=== PATIENT | female | born 1995 | race Caucasian/White ===

== ENCOUNTER 2016-05-18 06:33 | Inpatient (IN) | payer SELFPAY ==
[2016-05-18] MEDS ORDERED: ceFOXitin 2 GM IVPREMIX* 2 GM/50 ML BAG IVPB ONE (07:01)
[2016-05-18 07:22] LABS: Hematocrit 38 % (35-47); Hemoglobin 13.2 g/dl (12.0-16.0); Mean Corpuscular HGB Conc 35 g/dl (31-36); Mean Corpuscular Hemoglobin 33 pg (27-31); Mean Corpuscular Volume 96 fL (80-97); Mean Platelet Volume 11 um3 (7.4-10.4); Red Blood Count 3.95 10^6/ul (4.0-5.4); Red Cell Distribution Width 13 % (10.5-15); White Blood Count 24.1 10^3/ul (3.5-10.8)
[2016-05-18] MEDS ORDERED: ceFOXitin 2 GM IVPREMIX* 2 GM/50 ML BAG ONE (07:24)
[2016-05-18] MEDS ORDERED: Midazolam* 1 MG/ML 5 ML VIAL (5 MG) ONE (07:35)
[2016-05-18] MEDS ORDERED: KETAMINE HCL* 50 MG/ML 10 ML VIAL ONE (07:35)
[2016-05-18] MEDS ORDERED: Morphine PF AMP (0.5MG/ML)* 5 MG/10 ML AMP ONE (07:35)
[2016-05-18] MEDS ORDERED: fentaNYL* 50 MCG/ML 2 ML VIAL (100 MCG VIAL) ONE (07:35)
[2016-05-18] MEDS ORDERED: Morphine INJ* 10 MG/ML 1 ML SYRINGE ONE (07:35)
[2016-05-18] MEDS ORDERED: PROCHLORPERAZINE INJ 5 MG/ML 2 ML VIAL IV PRN (08:10)
[2016-05-18] MEDS ORDERED: oxyCODONE/Acetamin 5/325 MG* TAB PO PRN ×2 (08:10→10:02)
[2016-05-18] MEDS ORDERED: Ondansetron INJ* 2 MG/ML VIAL IV PRN (08:10)
[2016-05-18] MEDS ORDERED: Nalbuphine* 20 MG/ML 1 ML VIAL IV PRN (08:10)
[2016-05-18] MEDS ORDERED: Naloxone* 0.4 MG/ML 1 ML VIAL IV PRN (08:10)
[2016-05-18] MEDS ORDERED: Scopolamine 1.5 mg* PATCH ONE (08:57)
[2016-05-18] MEDS ORDERED: EPHEDrine (Pressors)* 50 MG/ML VIAL ONE (08:58)
[2016-05-18] MEDS ORDERED: Ondansetron INJ* 2 MG/ML VIAL ONE (08:58)
[2016-05-18] MEDS ORDERED: Dexamethasone IV* 4 MG/ML 1 ML (4 MG) ONE (08:58)
[2016-05-18] MEDS ORDERED: Phenylephrine INJ* 10 MG/ML 1 ML VIAL (10 MG) ONE (08:58)
[2016-05-18] MEDS ORDERED: OXYTOCIN* 10 UNITS/ML 1 ML VIAL ONE (08:58)
[2016-05-18 09:01] LABS: Add Diff/Slide Review? Slide Review Added
[2016-05-18] MEDS ORDERED: Acetaminophen TAB* 325 MG PO PRN (10:02)
[2016-05-18] MEDS ORDERED: Tetan/Diph/Pertus SYR(Tdap)* 0.5 ML SYR(BOOSTRIX) use SYR IM ONE (10:02)
[2016-05-18] MEDS ORDERED: Glycerin ADULT SUPP PR PRN (10:02)
[2016-05-18] MEDS ORDERED: Witch Hazel PAD* JAR TOPICAL PRN (10:02)
[2016-05-18] MEDS ORDERED: Dibucaine 1% 28.35 GM TUBE PR PRN (10:02)
[2016-05-18] MEDS ORDERED: Oxytocin in LR* 20 UNITS/1,000 ML BAG IVPB SCH (11:00)
[2016-05-18] MEDS: Ibuprofen TAB* 600 MG PO PRN ×2 (11:56→18:01)
[2016-05-18] MEDS: Simethicone CHEW TAB* 80 MG PO SCH ×3 (12:29→21:25)
[2016-05-18] MEDS: Docusate CAP* 100 MG PO SCH ×2 (13:59→21:25)
--- NOTE | 2016-05-18 21:34 | OP ---
ADDENDUM:* DATE OF SURGERY: 05/18/16 - ROOM #105 FLUIDS: 2500 cc of crystalloid. ESTIMATED BLOOD LOSS: 500 cc. URINE OUTPUT: 300 cc of concentrated yellow urine. FINDINGS: Revealed a vertex male infant with Apgars 9 at 1 minute and 9 at 5 minutes, weight was 8 pounds 10 ounces, moderate meconium, no nuchal cord. Placenta was manually extracted, 3-vessel cord intact with normal-appearing tubes and ovaries bilaterally. COMPLICATIONS: None apparent. DISPOSITION: Stable to the recovery room in stable condition. DESCRIPTION OF PROCEDURE: The patient was placed in dorsal lithotomy position. The abdomen was prepped and draped in a sterile standard fashion. After identifying the patient with universal protocol for correct position, patient, procedure and testing anesthesia to appropriate level, an incision was made 2 fingerbreadths above the pubic symphysis with a scalpel. This was carried down through to the fascia. The fascia was scored in the midline. The fascial incision was extended laterally and superiorly using Cosme scissors. The fascia was superiorly and inferiorly from the rectus muscles with blunt and sharp dissection. The peritoneum was then entered bluntly. Bladder blade was inserted. The lower uterine segment was identified. An Allis was used to tent up on the lower uterine segment. An incision was made with a scalpel. This was carried down through to the baby and the incision was then extended laterally and superiorly using bandage scissors. Infant was found to be wedged in the BRANDIN position. Anterior and posterior shoulders were delivered. Cord was milked and then clamped and the infant was noted to be vigorous with cry and movement and was handed off to the awaiting contract post office clerk. Appropriate cord blood was obtained. The placenta was then manually extracted and noted to be 3- vessel cord intact. The uterus was exteriorized, wrapped in warm moist laparotomy sponge. The uterine cavity was explored and noted to be free of any retained membranes or placental issue. The uterine incision itself was reapproximated in 2 layers, first layer running locked 0 Vicryl, second layer running imbricated 0 Vicryl. A [id number] was required on the right lateral edge of the incision for complete reapproximation and hemostasis of the incision. Tubes and ovaries were noted to have a normal appearance and the uterus was returned intra-abdominally. Colic gutters were then lavaged. The hysterotomy site was re-visualized and noted to be hemostatic. The peritoneum was then reapproximated using 0 Vicryl x1 in a running fashion. The subfascial area was visualized. Hemostasis assured and the fascia itself was then reapproximated using 0 Vicryl x2 in a running fashion. Subcu was lavaged. Hemostasis assured with Bovie coagulation and the skin itself was then reapproximated using 4-0 Monocryl in a subcuticular fashion. Steri-Strips and Mastisol were applied. All sponge, needle, instrument, and blade counts were correct throughout the case. The patient tolerated the procedure well and went to the recovery room in stable condition. [id number]/[facility] #: [id number] KAMILA
--- NOTE | 2016-05-18 22:07 | OP ---
CONTINUATION ADDENDUM NOW INCLUDED ON THIS REPORT DATE OF OPERATION: 05/18/16 - ROOM #105 DATE OF : 89 SURGEON: Minerva Vargas MD BUILDING SURVEYOR: Dr. Marcus Slaughter. ANESTHESIOLOGIST: Dr. Garcia. ANESTHESIA: Spinal. PRE-OP DIAGNOSES: Arrest of descent, category 2 heart tracing, at 41 and 6/7th weeks. POST-OP DIAGNOSES: Arrest of descent, category 2 heart tracing, 41 and 6/ 7th weeks. OPERATIVE PROCEDURE: Primary low transverse section. CONTINUATION ADDENDUM: FLUIDS: 2500 cc of crystalloid. ESTIMATED BLOOD LOSS: 500 cc. URINE OUTPUT: 300 cc of concentrated yellow urine. FINDINGS: Revealed a vertex male infant with Apgars 9 at 1 minute and 9 at 5 minutes, weight was 8 pounds 10 ounces, moderate meconium, no nuchal cord. Placenta was manually extracted, 3-vessel cord intact with normal-appearing tubes and ovaries bilaterally. COMPLICATIONS: None apparent. DISPOSITION: Stable to the recovery room in stable condition. DESCRIPTION OF PROCEDURE: The patient was placed in dorsal lithotomy position. The abdomen was prepped and draped in a sterile standard fashion. After identifying the patient with universal protocol for correct position, patient, procedure and testing anesthesia to appropriate level, an incision was made 2 fingerbreadths above the pubic symphysis with a scalpel. This was carried down through to the fascia. The fascia was scored in the midline. The fascial incision was extended laterally and superiorly using Cosme scissors. The fascia was superiorly and inferiorly from the rectus muscles with blunt and sharp dissection. The peritoneum was then entered bluntly. Bladder blade was inserted. The lower uterine segment was identified. An Allis was used to tent up on the lower uterine segment. An incision was made with a scalpel. This was carried down through to the baby and the incision was then extended laterally and superiorly using bandage scissors. was found to be wedged in the BRANDIN position. Anterior and posterior shoulders were delivered. Cord was milked and then clamped and the infant was noted to be vigorous with cry and movement and was handed off to the awaiting malt house supervisor. Appropriate cord blood was obtained. The placenta was then manually extracted and noted to be 3- vessel cord intact. The uterus was exteriorized, wrapped in warm moist laparotomy sponge. The uterine cavity was explored and noted to be free of any retained membranes or placental issue. The uterine incision itself was reapproximated in 2 layers, first layer running locked 0 Vicryl, second layer running imbricated 0 Vicryl. A [id number]-[id number] was required on the right lateral edge of the incision for complete reapproximation and hemostasis of the incision. Tubes and ovaries were noted to have a normal appearance and the uterus was returned intra-abdominally. Colic gutters were then lavaged. The hysterotomy site was re-visualized and noted to be hemostatic. The peritoneum was then reapproximated using 0 Vicryl x1 in a running fashion. The subfascial area was visualized. Hemostasis assured and the fascia itself was then reapproximated using 0 Vicryl x2 in a running fashion. Subcu was lavaged. Hemostasis assured with Bovie coagulation and the skin itself was then reapproximated using 4-0 Monocryl in a subcuticular fashion. Steri-Strips and Mastisol were applied. All sponge, needle, instrument, and blade counts were correct throughout the case. The patient tolerated the procedure well and went to the recovery room in stable condition. CC: Marcus Sl[place] [id number]/[facility] #: [id number] [place] [id number]/[facility] #: [id number] KAMILA
[2016-05-19] MEDS: Ibuprofen TAB* 600 MG PO PRN ×4 (01:11→20:46)
[2016-05-19] MEDS: oxyCODONE/Acetamin 5/325 MG* TAB PO PRN ×3 (04:25→17:46)
[2016-05-19 07:06] LABS: Hematocrit 34 % (35-47); Hemoglobin 11.4 g/dl (12.0-16.0); Mean Corpuscular HGB Conc 34 g/dl (31-36); Mean Corpuscular Hemoglobin 33 pg (27-31); Mean Corpuscular Volume 98 fL (80-97); Mean Platelet Volume 10 um3 (7.4-10.4); Red Blood Count 3.44 10^6/ul (4.0-5.4); Red Cell Distribution Width 13 % (10.5-15); White Blood Count 19.8 10^3/ul (3.5-10.8)
[2016-05-19] MEDS: Simethicone CHEW TAB* 80 MG PO SCH ×4 (08:14→20:46)
[2016-05-19] MEDS: Docusate CAP* 100 MG PO SCH ×3 (08:14→20:46)
[2016-05-19] MEDS: Prenatal Vitamin TAB PO SCH (08:14)
[2016-05-19] MEDS ORDERED: Ferrous Gluconate TAB* 324 MG TAB PO SCH (09:00)
--- NOTE | 2016-05-19 16:37 | PN ---
Progress Note - Progress Note Note: Anesthesia duramorph follow-up. Pt doing well, no nausea, adequate pain control. Neuro OK, alert, VSS, no DEAN. s/p CS, continue oral meds.
[2016-05-20] MEDS: Ibuprofen TAB* 600 MG PO PRN (07:45)
[2016-05-20 08:03] VITALS: BP 123/71
[2016-05-20] MEDS: Docusate CAP* 100 MG PO SCH (09:11)
[2016-05-20] MEDS: Simethicone CHEW TAB* 80 MG PO SCH (09:12)
[2016-05-20] MEDS: Prenatal Vitamin TAB PO SCH (09:12)
[2016-05-21] MEDS ORDERED: Scopolomine PATCH Remove* 1 NOTE MISC PATCH OFF SCH (09:00)
== END 2016-05-20 13:53 | disposition home or self-care (01) | DRG 766 ==
LOC: MCHOBOUT 06:33 → MCHOB 07:11
PROVIDERS: ADMIT Obstetrics & Gynecology; ATTEND Obstetrics & Gynecology
PROC: 10D00Z1 Extraction of Products of Conception, Low, Open Approach (ICD-10-PCS; principal; 2016-05-18 07:44)
DX: O62.1 Secondary uterine inertia (principal); O48.0 Post-term pregnancy; O77.0 Labor and delivery complicated by meconium in amniotic fluid; O32.8XX0 Maternal care for other malpresentation of fetus, not applicable or unspecified; O76 Abnormality in fetal heart rate and rhythm complicating labor and delivery; Z3A.41 41 weeks gestation of pregnancy; Z37.0 Single live birth
CPT/HCPCS: 36415; 85025; 86703; 86850; 86900; 86901; A9270-GY; J0694; J1100; J2250; J2270; J2300; J2405; J2590; J3010